=== PATIENT | female | born 1975 | race Two or more races ===

== ENCOUNTER 2018-06-28 12:36 | Inpatient (IN) | payer MEDICAID, OTHER ==
[~2018-06-28] VITALS: Ht 165.1 cm; Wt 68.0 kg
[~2018-06-28 12:36] MED LIST: NITR100C44
[2018-06-28] MEDS ORDERED: ONDANSETRON HCL 4 MG/2 ML VIAL IV ONE (13:00)
[2018-06-28] MEDS ORDERED: MORPHINE SULFATE 4 MG/ML SYR/VIAL IV ONE (13:00)
[2018-06-28 13:44] LABS: Urine Bacteria FEW /hpf (None Seen); Urine Blood TRACE /uL (Negative); Urine Hyaline Cast MOD /lpf (0 - 2); Urine Mucus FEW (None Seen); Urine Specific Gravity 1.029 (1.001-1.035); Urine WBC 13 /hpf (0 - 5)
[2018-06-28 14:19] LABS: Basophils # (auto) 0 uL; Eosinophils # (auto) 0 uL; Lymphocytes # (auto) 0.6 uL; Mean Corpuscular Hemoglobin 26.9 pg (28.0-32.0); Monocytes # (auto) 0.4 uL; Nucleated Red Blood Cells % 0.1 %
[2018-06-28 14:20] LABS: Basophils % (auto) 0.4 % (0.0-2.0); Hematocrit 40.6 % (36.0-46.0); Hemoglobin 13.6 g/dL (12.2-16.2); Lymphocytes % (auto) 5.5 % (10.0-50.0); Mean Corpuscular Hgb Conc. 33.5 g/dL (32.0-36.0); Mean Corpuscular Volume 80.3 fL (80.0-100.0); Monocytes % (auto) 4.2 % (0.0-12.0); Neutrophils # (auto) 9.5 uL; Neutrophils % (auto) 89.9 % (37.0-80.0); Platelet Count (auto) 305 10^3/uL (140-450); Red Blood Cells 5.06 10^6/uL (4.0-5.20); Red Cell Distribution Width 14.4 % (11.8-14.3); White Blood Cell 10.5 10^3/uL (4.4-10.8)
[2018-06-28] MEDS ORDERED: metroNIDAZOLE 500MG/100ML 100 ML IV ONE (14:30)
[2018-06-28 14:36] LABS: Albumin 3.6 g/dL (3.4-5.0); BUN/Creatinine Ratio 8.3; Calcium 8.3 mg/dL (8.5-10.1); Magnesium 1.8 mg/dL (1.6-2.6); Potassium 3.7 mmol/L (3.5-5.1)
[2018-06-28 14:39] LABS: Bilirubin, Total 1.6 mg/dL (0.2-1.0); Total Protein 7.9 g/dL (6.4-8.2)
[2018-06-28] MEDS ORDERED: HYDROcodone-ACET 5/325MG TAB PO PRN (15:00)
[2018-06-28] MEDS ORDERED: cefTRIAXone 1GM/50ML D5W 50 ML IV ONE (15:00)
[2018-06-28] MEDS ORDERED: ACETAMINOPHEN 500 MG TAB PO PRN (15:00)
[2018-06-28] MEDS ORDERED: LORazepam 0.5 MG TAB PO PRN (15:00)
[2018-06-28] MEDS ORDERED: MORPHINE SULF INJ 2 MG/ML SYRINGE 1ML IV PRN (15:00)
[2018-06-28] MEDS ORDERED: NITROGLYCERIN 0.4 MG SL TAB SL PRN (15:00)
[2018-06-28] MEDS: SODIUM CHLORIDE 0.9% 1,000 ML IV SCH ×2 (15:01→22:44)
[2018-06-28] MEDS: metroNIDAZOLE 500MG/100ML 100 ML IV SCH (18:00)
[2018-06-28 18:38] VITALS: BP 116/89
[2018-06-28] MEDS ORDERED: IBUP200C3 PO (18:49)
[2018-06-28] MEDS ORDERED: LOP2C PO (18:49)
--- NOTE | 2018-06-28 19:00 | NUR ---
OPEN SHIFT NOTE PATIENT IS ALERT AND ORIENTED X4. ON ROOM AIR , RIGHT AC 20 GAUGE IS INTACT AND PATENT. POC WAS DISCUSSED WITH PATIENT AND AND QUESTIONS ANSWERED. BED IS LOCKED IN LOWEST POSITION WITH SIDE RAILS UP X2 FOR SAFETY. CALL LIGHT IS WITHIN REACH AND ENCOURAGED TO CALL IF NEEDS ANY ASSISTANCE. WILL CONTINUE TO ROUND Q1 HR AND PRN.
[2018-06-28] MEDS: traMADol HCL 50 MG TAB PO PRN (20:18)
[2018-06-28 22:00] VITALS: BP 115/62
--- NOTE | 2018-06-28 22:23 | NUR ---
PATIENT HAS A SLIGHTLY ELEVATED TEMPERATURE OF 100.8, GAVE ICE TO PUT UNDER ARMPITS AND BEHIND THE NECK. WILL CONTINUE TO MONITOR.
--- NOTE | 2018-06-28 23:03 | NUR ---
TEMPERATURE REASSESSED TEMP IS NOW 98.7
[2018-06-28] MEDS: HYDROcodone-ACET 5/325MG TAB PO PRN (23:12)
[2018-06-29] MEDS: metroNIDAZOLE 500MG/100ML 100 ML IV SCH ×4 (00:19→17:15)
[2018-06-29 05:00] VITALS: BP 105/63
[2018-06-29] MEDS: SODIUM CHLORIDE 0.9% 1,000 ML IV SCH ×2 (06:52→14:45)
[2018-06-29] MEDS: ENOXAPARIN SOD 40 MG/0.4 ML SYRINGE SC SCH (08:29)
[2018-06-29] MEDS: cefTRIAXone 1GM/50ML D5W 50 ML IV SCH (08:29)
[2018-06-29] MEDS: PANTOPRAZOLE 40 MG TAB PO SCH (08:30)
[2018-06-29] MEDS: PROMETHAZINE HCL 25 MG/ML 1ML IV PRN (08:31)
[2018-06-29 08:49] VITALS: BP 100/59
[2018-06-29 14:07] VITALS: BP 113/61
[2018-06-29 17:16] VITALS: BP_SYST 103; BP_SYST 109; BP_DIAS 57
--- NOTE | 2018-06-29 20:37 | NUR ---
open note assumed care of pt. upon entering room pt awake and alert with multiple family members at bedside. pt updated on plan of care. pt denied any pain at this time. no distress noted. pt advanced to regular diet for dinner and had no issues with consuming meals, denies any pain or nausea. no additional questions. pt call light in reach encouraged to use as needed. will round on this pt q1hr and prn.
[2018-06-29 22:00] VITALS: BP 96/72
--- NOTE | 2018-06-29 23:45 | NUR ---
Received report from Vidal SANCHEZ and assumed care of pt at this time.
--- NOTE | 2018-06-29 23:46 | NUR ---
report given to DANIEL John. pt eyes closed, breathing even and unlabored. no distress noted. call light in reach
[2018-06-30] MEDS: metroNIDAZOLE 500MG/100ML 100 ML IV SCH ×4 (00:42→18:56)
--- NOTE | 2018-06-30 00:44 | NUR ---
Pt is resting in bed with resp rate even and unlabored. No s/s of any distress noted and pt denies any abd pain at this time. Pt dinner tray still at bedside and pt had eaten 90% of her dinner and gonzález well. POC discussed with pt and pt verbalizes understanding. Bed is low, wheels are locked, and call light is with in reach.
[2018-06-30 04:53] VITALS: BP 99/62
[2018-06-30 05:42] LABS: Basophils # (auto) 0 uL; Basophils % (auto) 0.6 % (0.0-2.0); Eosinophils # (auto) 0 uL; Lymphocytes # (auto) 1.2 uL; Monocytes # (auto) 0.6 uL; Neutrophils # (auto) 4.1 uL
[2018-06-30 05:45] LABS: Eosinophils % (auto) 0.8 % (0.0-7.0); Hematocrit 33.1 % (36.0-46.0); Hemoglobin 11.2 g/dL (12.2-16.2); Lymphocytes % (auto) 20.1 % (10.0-50.0); Mean Corpuscular Hemoglobin 26.9 pg (28.0-32.0); Mean Corpuscular Hgb Conc. 33.8 g/dL (32.0-36.0); Mean Corpuscular Volume 79.6 fL (80.0-100.0); Monocytes % (auto) 10.6 % (0.0-12.0); Neutrophils % (auto) 67.9 % (37.0-80.0); Platelet Count (auto) 280 10^3/uL (140-450); Red Blood Cells 4.15 10^6/uL (4.0-5.20); Red Cell Distribution Width 14.1 % (11.8-14.3)
[2018-06-30 05:59] LABS: Albumin 2.8 g/dL (3.4-5.0); BUN/Creatinine Ratio 10.9; Calcium 7.8 mg/dL (8.5-10.1); Magnesium 2.1 mg/dL (1.6-2.6); Potassium 3.1 mmol/L (3.5-5.1)
[2018-06-30 06:03] LABS: Bilirubin, Total 0.7 mg/dL (0.2-1.0); Total Protein 6.6 g/dL (6.4-8.2)
--- NOTE | 2018-06-30 07:00 | NUR ---
Opening Shift Note Assumed care of patient, awake, alert, and oriented x4. No S/S of distress/SOB, but patient reports medial abdominal pain of 8/10. IV in right AC 20 gauge asymptomatic, intact, patent, and infusing normal saline at 100 mL/hour. Bed locked and in lowest position and call light is within reach. Instructed on POC and to call for assist PRN, and patient verbalized understanding. Will continue to monitor for changes Q1hr and PRN.
[2018-06-30] MEDS: SODIUM CHLORIDE 0.9% 1,000 ML IV SCH ×2 (07:12→10:45)
[2018-06-30 08:51] VITALS: BP 108/67
[2018-06-30] MEDS: cefTRIAXone 1GM/50ML D5W 50 ML IV SCH (08:58)
[2018-06-30] MEDS: traMADol HCL 50 MG TAB PO PRN (09:16)
[2018-06-30] MEDS: PROMETHAZINE HCL 25 MG/ML 1ML IV PRN (09:16)
--- NOTE | 2018-06-30 10:30 | NUR ---
Dr. Covington, rail car welder, at bedside.
[2018-06-30] MEDS: PANTOPRAZOLE 40 MG TAB PO SCH (10:43)
[2018-06-30] MEDS: ENOXAPARIN SOD 40 MG/0.4 ML SYRINGE SC SCH (10:45)
[2018-06-30 13:11] VITALS: BP 100/61
--- NOTE | 2018-06-30 13:30 | NUR ---
Dr. De Oliveira at bedside. New orders received. Will continue to monitor Q1.
[2018-06-30] MEDS ORDERED: POTASSIUM CHL 20 Meq TABLET PO ONE (14:00)
--- NOTE | 2018-06-30 16:30 | NUR ---
ASSUMED CARE OF PATIENT PATIENT ALERT AND ORIENTED X4. NO S/S OF DISTRESS, SOB, OR PAIN. RESPIRATIONS EVEN AND UNLABORED. FAMILY AT BEDSIDE. BED IS IN LOWEST POSITION, SIDE RAILS UP X2, AND CALL LIGHT WITHIN REACH. WILL CONTINUE TO MONITOR Q1 HOUR AND PRN.
[2018-06-30 17:16] VITALS: BP 96/58
--- NOTE | 2018-06-30 19:01 | NUR ---
END OF SHIFT PATIENT RESTING IN BED. NO S/S OF DISTRESS, SOB, OR PAIN. RESPIRATIONS EVEN AND UNLABORED. BED IS IN LOWEST POSITION, SIDE RAILS UP X2, AND CALL LIGHT WITHIN REACH. WILL ENDORSE CARE TO [employer] TEACHER R.N.
--- NOTE | 2018-06-30 19:10 | NUR ---
Opening shift note: Assumed care for Patient from day nurse. Patient is alert and oriented x4. No s/s of distress or sob. Patient instructed on poc and to call for assistance as need. Patient verbalizes understanding. Bed in lowest position with lock on and call light in reach. Family is bedside
[2018-07-01] MEDS: metroNIDAZOLE 500MG/100ML 100 ML IV SCH ×5 (00:12→23:43)
[2018-07-01] MEDS: SODIUM CHLORIDE 0.9% 1,000 ML IV SCH ×3 (00:40→16:45)
[2018-07-01] MEDS: HYDROcodone-ACET 5/325MG TAB PO PRN (00:48)
[2018-07-01] MEDS: PROMETHAZINE HCL 25 MG/ML 1ML IV PRN (00:58)
[2018-07-01 05:33] VITALS: BP 105/71
--- NOTE | 2018-07-01 07:00 | NUR ---
Opening Shift Note Assumed care of patient, awake, alert, and oriented x4. No S/S of distress/SOB or pain. IV in right AC asymptomatic, patent, intact, and infusing normal saline at 100 mL/hour. Bed locked and in lowest position and call light is within reach. Instructed on POC and to call for assist PRN, and patient verbalized understanding. Will continue to monitor for changes Q1hr and PRN.
--- NOTE | 2018-07-01 07:39 | NUR ---
Closing shift note: Endorsed care to day nurse. Informed nurse of patient's nausea and vomiting. Patient is stable with no s/s of distress or sob.
[2018-07-01 07:53] LABS: Potassium 3.7 mmol/L (3.5-5.1)
[2018-07-01] MEDS: cefTRIAXone 1GM/50ML D5W 50 ML IV SCH (08:59)
[2018-07-01 09:03] VITALS: BP 118/73
[2018-07-01] MEDS: PANTOPRAZOLE 40 MG TAB PO SCH (10:16)
[2018-07-01] MEDS: ENOXAPARIN SOD 40 MG/0.4 ML SYRINGE SC SCH (10:18)
[2018-07-01] MEDS ORDERED: GOLYTELY 4L KIT PO ONE (11:00)
--- NOTE | 2018-07-01 11:00 | NUR ---
Dr. Covington at bedside. New orders received. Will continue to monitor Q1.
[2018-07-01] MEDS ORDERED: POTASSIUM CHL 20 Meq TABLET PO ONE (11:30)
[2018-07-01 13:21] VITALS: BP 145/78
[2018-07-01 17:31] VITALS: BP 120/76
--- NOTE | 2018-07-01 19:30 | NUR ---
Opening Shift Note Assumed care of patient, awake and alert. No S/S of distress/SOB or pain. Patient drinking Golytely at this time. Bed locked in lowest position, side rails upx2, call light within reach. Instructed on POC and to call for assist PRN, will continue to monitor for changes Q1hr and PRN.
[2018-07-01 23:06] VITALS: BP 125/71
[2018-07-02] MEDS: SODIUM CHLORIDE 0.9% 1,000 ML IV SCH ×3 (02:45→22:45)
[2018-07-02 05:54] LABS: Hemoglobin 10.4 g/dL (12.2-16.2)
[2018-07-02 05:56] LABS: Hematocrit 30.6 % (36.0-46.0)
[2018-07-02] MEDS ORDERED: GOLYTELY 4L KIT PO ONE (06:00)
[2018-07-02 06:02] LABS: Potassium 3.2 mmol/L (3.5-5.1)
[2018-07-02] MEDS: metroNIDAZOLE 500MG/100ML 100 ML IV SCH (06:03)
[2018-07-02 06:05] LABS: Magnesium 1.8 mg/dL (1.6-2.6)
[2018-07-02 06:08] VITALS: BP 128/70
[2018-07-02 06:14] LABS: INR 0.99 (0.9-1.15); Partial Thromboplastin Time 23.5 sec (23.78-33.04); Prothrombin Time 10.6 sec (9.27-12.13)
--- NOTE | 2018-07-02 07:00 | NUR ---
Opening Shift Note Assumed care of patient, awake, alert, and oriented x4. No signs or symptoms of SOB or pain, but patient is reporting nausea at this time. IV is in right AC 20 gauge, asymptomatic, intact, patent, and infusing normal saline at 100 mL/hour. Bed locked and in lowest position and call light is within reach. Instructed on POC and to call for assist PRN, and patient verbalized understanding. Will continue to monitor for changes Q1hr and PRN.
[2018-07-02] MEDS ORDERED: SODIUM CHLORIDE LOCK 0 ML ONE (08:18)
[2018-07-02] MEDS ORDERED: diphenhdrAMINE HCL 50 MG/1 ML VL ONE (08:19)
[2018-07-02] MEDS ORDERED: MIDAZOLAM HCL 5 MG/ML-1ML VIAL ONE (08:19)
[2018-07-02] MEDS ORDERED: fentaNYL CITRATE 100 MCG/2 ML VL ONE (08:19)
[2018-07-02 08:56] VITALS: BP 122/77
[2018-07-02] MEDS: cefTRIAXone 1GM/50ML D5W 50 ML IV SCH (09:00)
[2018-07-02] MEDS: ENOXAPARIN SOD 40 MG/0.4 ML SYRINGE SC SCH (10:13)
[2018-07-02] MEDS: PANTOPRAZOLE 40 MG TAB PO SCH (10:13)
--- NOTE | 2018-07-02 11:59 | NUR ---
Nutrition Assessment Notes please see attached link for complete assessment Est. Needs BW [id number] kcal (23-25 kcal/kgBW), 71-78 gms pro (1.0-1.1 gms/kgBW). Will continue to monitor pertinent labs and reassess nutrient need prn. Addendum: 07/02/18 at [address] Amended: Links added.
[2018-07-02] MEDS ORDERED: POTASSIUM CHL 20 Meq TABLET PO ONE (12:45)
[2018-07-02] MEDS ORDERED: MAGNESIUM SULFATE 1GM/100ML 100 ML IV ONE (12:45)
[2018-07-02 13:16] VITALS: BP 142/67
[2018-07-02] MEDS ORDERED: metroNIDAZOLE 500MG/100ML 100 ML IV SCH (14:00)
[2018-07-02 17:22] VITALS: BP 135/72
--- NOTE | 2018-07-02 20:00 | NUR ---
Opening Shift Note Assumed care of patient, awake and alert, oriented x 4. On room air with even and unlabored respirations, no S/S of distress or SOB. Patient denies nausea and pain. Active bowel sounds, abd soft and nontender upon palpations. Bed low locked position with side rails up x 2 and call light within reach. Instructed on POC and to call for assist PRN, will continue to monitor for changes Q1hr and PRN.
[2018-07-02 22:00] VITALS: BP 139/79
--- NOTE | 2018-07-02 22:00 | NUR ---
IV removal and IV insertion IV DC'd with clean sterile technique, catheter fully intact. Pressure dressing applied to site. Patient tolerated well. NOTE: leaking IV insertion IV access obtained, via clean sterile technique by inserting 22 gauge catheter at left FA after 1 attempt(s). IV secured properly. No trauma to site. Patient tolerated well.
[2018-07-03 05:41] VITALS: BP 140/73
[2018-07-03 06:26] LABS: Hematocrit 36.8 % (36.0-46.0); Hemoglobin 12.3 g/dL (12.2-16.2)
[2018-07-03 06:35] LABS: Potassium 3.3 mmol/L (3.5-5.1)
[2018-07-03 06:37] LABS: Magnesium 2.1 mg/dL (1.6-2.6)
--- NOTE | 2018-07-03 07:05 | NUR ---
Closing Note patient awake lying in bed. No s/s of distress. IV intact and patent infusing NS at 100ml/hr. Endorsed care to dayshift Rn.
--- NOTE | 2018-07-03 07:34 | NUR ---
patient is alert and oriented x4 with no distress noted, [place] speaking, lying in bed watching tv, she denies any pain, verbalized she is hungry, repositioned herself.
[2018-07-03 07:37] VITALS: BP 134/78
[2018-07-03] MEDS: cefTRIAXone 1GM/50ML D5W 50 ML IV SCH (07:38)
[2018-07-03] MEDS: SODIUM CHLORIDE 0.9% 1,000 ML IV SCH (07:38)
[2018-07-03] MEDS: PANTOPRAZOLE 40 MG TAB PO SCH (07:41)
[2018-07-03] MEDS: ENOXAPARIN SOD 40 MG/0.4 ML SYRINGE SC SCH (07:41)
[2018-07-03 11:46] VITALS: BP 118/74
[2018-07-03] MEDS ORDERED: POTASSIUM CHL 20 Meq TABLET PO ONE (12:00)
[2018-07-03] MEDS ORDERED: PRENATAL VITAMIN TAB PO ONE (12:15)
[2018-07-03] MEDS ORDERED: SODIUM CHLORIDE 0.9% 1,000 ML IV SCH (12:15)
[2018-07-03 16:23] VITALS: BP 119/73
--- NOTE | 2018-07-03 17:26 | NUR ---
patient discharged, she signed all forms, collected all belongings and information for primary physician and information to the medical clinic for [facility] care. iv and tele monitor removed and intact, she denies any pain.
[2018-07-04] MEDS ORDERED: PRENATAL VITAMIN TAB PO SCH (10:00)
== END 2018-07-03 17:25 | disposition home or self-care (01) | DRG 566 ==
LOC: ER 12:36 → TELE 14:57 → TELE-WESTW 17:19
PROVIDERS: ADMIT Internal Medicine; ATTEND Internal Medicine
DX: O99.611 Diseases of the digestive system complicating pregnancy, first trimester (principal); N17.0 Acute kidney failure with tubular necrosis; O26.831 Pregnancy related renal disease, first trimester; E87.1 Hypo-osmolality and hyponatremia; O98.811 Other maternal infectious and parasitic diseases complicating pregnancy, first trimester; O34.219 Maternal care for unspecified type scar from previous cesarean delivery; O26.611 Liver and biliary tract disorders in pregnancy, first trimester; K52.9 Noninfective gastroenteritis and colitis, unspecified; R73.9 Hyperglycemia, unspecified; K76.0 Fatty (change of) liver, not elsewhere classified; E87.6 Hypokalemia; O99.281 Endocrine, nutritional and metabolic diseases complicating pregnancy, first trimester; Z98.51 Tubal ligation status; Z90.49 Acquired absence of other specified parts of digestive tract; Z3A.01 Less than 8 weeks gestation of pregnancy; Z87.59 Personal history of other complications of pregnancy, childbirth and the puerperium
CPT/HCPCS: 36415; 74176; 76801; 76817; 80053; 80061; 81001; 81025; 82150; 83036; 83690; 83735; 84132; 84702; 85014; 85018; 85025; 85610; 85652; 85730; 87045; 87086; 87493; 87899; 93005; 94761; 96365; 96366; 96368; 96375; G0378; J0696; J2250; J2405; J3490

== ENCOUNTER 2021-09-13 14:27 | Emergency (ER) | payer MEDICAID ==
[~2021-09-13 14:27] MED LIST changes: +IBUP200C3 PO; +LOP2C PO; +NITR-87; -NITR100C44
[2021-09-13] MEDS ORDERED: KETOROLAC TROMETH 60MG/2ML VIAL IM ONE (15:00)
[2021-09-13 15:55] LABS: Basophils # (auto) 0.1 10 ^3/uL (0-0.2); Basophils % (auto) 1.5 % (0.0-2.0); Eosinophils # (auto) 0.2 10 ^3/uL (0-0.8); Eosinophils % (auto) 2.7 % (0.0-7.0); Hematocrit 43.5 % (36.0-46.0); Hemoglobin 14.7 g/dL (12.2-16.2); Mean Corpuscular Hemoglobin 29.4 pg (28.0-32.0); Mean Corpuscular Hgb Conc. 33.8 g/dL (32.0-36.0); Monocytes # (auto) 0.5 10 ^3/uL (0-1.3); Monocytes % (auto) 8.5 % (0.0-12.0); Neutrophils # (auto) 3.1 10 ^3/uL (1.6-8.6); Neutrophils % (auto) 53.3 % (37.0-80.0); Nucleated Red Blood Cells % 0.1 %; Red Cell Distribution Width 11.8 % (11.8-14.3); White Blood Cell 5.8 10^3/uL (4.4-10.8)
[2021-09-13 16:10] LABS: Albumin 4.5 g/dL (3.4-5.0); Potassium 3.9 mmol/L (3.5-5.1)
[2021-09-13 16:12] LABS: BUN/Creatinine Ratio 17.1
[2021-09-13 16:14] LABS: Bilirubin, Total 0.8 mg/dL (0.2-1.0); Total Protein 7.7 g/dL (6.4-8.2)
[2021-09-13] MEDS ORDERED: TRAM-297 PO (18:57)
[2021-09-13 19:23] VITALS: BP 155/82
== END 2021-09-13 19:25 | disposition home or self-care (01) ==
LOC: ER 14:27
DX: N83.201 Unspecified ovarian cyst, right side (principal); I10 Essential (primary) hypertension; Z90.49 Acquired absence of other specified parts of digestive tract; Z98.51 Tubal ligation status
CPT/HCPCS: 36415; 76830; 76856; 80053; 85025